=== PATIENT | male | born 1980 | race Caucasian/White ===

== ENCOUNTER 2017-03-19 01:00 | Emergency (ER) | payer SELFPAY ==
[2017-03-19 01:11] VITALS: TEMP 97.8; O2SAT 100
[2017-03-19] MEDS ORDERED: PROPARACAINE HCL 0.5% OPHTHALMIC SOL ONE (01:18)
[2017-03-19] MEDS ORDERED: PROPARACAINE HCL 0.5% OPHTHALMIC SOL OP ONE (01:31)
[2017-03-19] MEDS ORDERED: SULFACETAMIDE 10% OPHTH 1 DROP SOL OP ONE (01:36)
[2017-03-19] MEDS ORDERED: SULFACETAMIDE 10% OPHTH 1 DROP SOL ONE (01:38)
[2017-03-19 02:09] VITALS: BP 132/94; PULSE 76; RESP 20
== END 2017-03-19 01:50 | disposition home or self-care (01) | DRG 125 ==
LOC: ED 01:00
DX: T15.01XA Foreign body in cornea, right eye, initial encounter (principal)
CPT/HCPCS: 99282

== ENCOUNTER 2017-08-08 17:42 | Emergency (ER) | payer OTHER ==
[2017-08-08] MEDS ORDERED: IBUPROFEN 600 MG TAB PO ONE (18:13)
[2017-08-08] MEDS ORDERED: IBUPROFEN 600 MG TAB ONE (18:15)
[2017-08-08 19:28] VITALS: PULSE 100; RESP 18; TEMP 98.4; O2SAT 96
[2017-08-08 19:39] VITALS: BP 127/92
== END 2017-08-08 18:58 | disposition home or self-care (01) | DRG 103 ==
LOC: ED 17:42
DX: R51 Headache (principal); V43.52XA Car driver injured in collision with other type car in traffic accident, initial encounter
CPT/HCPCS: 99282; 99283; G0390